=== PATIENT | female | born 1975 | race Caucasian/White ===

== ENCOUNTER 2018-08-29 17:28 | Emergency (ER) | payer OTHER ==
[~2018-08-29] VITALS: Ht 167.6 cm; Wt 124.3 kg
[~2018-08-29 17:28] MED LIST: XOPENEX0.63 MG/3 IH; ZITHROMAX500 MG PO; ZYNCOF 20-400120 ML PO
== END 2018-08-29 21:43 | disposition home or self-care (01) ==
LOC: ER 17:28
DX: K29.00 Acute gastritis without bleeding (principal)